=== PATIENT | female | born 1945 | race Caucasian/White ===

== ENCOUNTER 2020-12-10 11:39 | Inpatient (IN) ==
--- NOTE | 2020-12-10 12:07 | Emergency Department Note ---
History of Present Illness General Chief complaint: Arm Pain Stated complaint: FALLS, ARM FX Time Seen by Provider: 12/10/20 11:51 Source: patient Mode of arrival: EMS Limitations: language barrier History of Present Illness Provider complaint: Left arm pain 75-year-old female presents from a local senior living where she is being rehabbed after having a subarachnoid hemorrhage and status post craniectomy. The patient has been there for about 10 days at [facility]. They noticed some abnormality with her left arm. There was noted to be some swelling. Sent her here for evaluation. She has frequent falls. She has fallen at least 4 times in the last 24 hours according to EMS. Patient is unable to provide any information as she is nonverbal. The patient is full assist at the senior living. Home Medications Medication Instructions Recorded Confirmed Type acetaminophen [Tylenol] 325 mg PO Q4H PRN 12/10/20 12/10/20 History amantadine HCl 50 mg PO BID 12/10/20 12/10/20 History bethanechol chloride 10 mg PO TID 12/10/20 12/10/20 History donepezil 5 mg PO HS 12/10/20 12/10/20 History famotidine 20 mg PO BID 12/10/20 12/10/20 History ipratropium-albuterol [DuoNeb] 3 ml INHALATION Q6H PRN 12/10/20 12/10/20 History lactose-reduced food with fibr See Rx Instructions .ROUTE .COMPLEX 12/10/20 12/10/20 History [Jevity 1.5 Tu] levetiracetam [Keppra] 1,500 mg PO Q12H 12/10/20 12/10/20 History melatonin 3 mg PO HS PRN 12/10/20 12/10/20 History midodrine 10 mg PO TID 12/10/20 12/10/20 History mirtazapine 7.5 mg PO HS 12/10/20 12/10/20 History sennosides [senna] 8.6 mg PO HS 12/10/20 12/10/20 History tamsulosin [Flomax] 0.4 mg PO BID 12/10/20 12/10/20 History Allergies Allergy/AdvReac Type Severity Reaction Status Date / Time No Known Allergies Allergy Unverified 12/10/20 13:08 Past Med/Surg History Medical History (Updated 12/10/20 @ 14:09 by Xu Horn DO) Bladder outlet obstruction Encephalopathy Epilepsy Falls History of ARDS Left humeral fracture Obesity Recent urinary tract infection Subarachnoid bleed Surgical History (Updated 12/10/20 @ 13:35 by Shweta Sheppard PA-C) History of cranioplasty Status post insertion of percutaneous endoscopic gastrostomy (PEG) tube Social History Smoking Status: Unknown if ever smoked Review of Systems A total of 10 systems reviewed and were otherwise negative Physical Exam Vital Signs Vital Signs - 24 hr 12/10/20 11:40 Temperature 36.8 C Temperature Source Oral Pulse Rate 64 Pulse Rhythm Regular Respiratory Rate 22 Respiratory Effort / Characteristics Non-Labored Spontaneous Respiratory Depth Normal Respiratory Pattern Regular Blood Pressure 113/65 Blood Pressure Mean 81 Blood Pressure Position Lying Pulse Oximetry 97 Oxygen Delivery Method Room Air Sepsis Recent Fever Within 48 Hours No Sepsis New/Unexplained Change in Mental Status No Sepsis Action Taken by Nursing No Action Required CONSTITUTIONAL/VITAL SIGNS: Reviewed / noted above. GENERAL: Non-toxic in appearance. INTEGUMENTARY: Warm, dry, and [place]. HEAD: Normocephalic. Ecchymosis around the left eye. EYES: without scleral icterus or trauma. ENT/OROPHARYNX: clear and moist. LYMPHADENOPATHY/NECK: Is supple without lymphadenopathy or meningismus. RESPIRATORY: Lungs clear and equal. CARDIOVASCULAR: Regular rate and rhythm. GI/ABDOMEN: Soft and nontender. No organomegaly or pulsatile mass. No rebound or guarding. Normal bowel sounds. EXTREMITIES: Warm and well perfused. Swelling/edema to the left humeral region. Distally neurovascularly intact. NEUROLOGICAL: Intact without focal deficits. PSYCHIATRIC: normal affect. MUSCULOSKELETAL: Normally developed with good muscle tone. TRIAGE NURSING DOCUMENTATION REVIEWED. Medical Decision Making Differential Diagnosis Differential includes close head injury, intracranial bleed, facial trauma, cervical spine trauma, chest and thoracic trauma, abdominal and intra-abdominal trauma, spine neurologic trauma, extremity trauma. Medical Records Attestation: I reviewed the patient's medical records. Home Medications Current Medication List: was personally reviewed by me Laboratory Data Attestation: I reviewed the patient's lab results. Result diagrams: 12/10/20 12:52 12/10/20 12:52 Lab Results 12/10/20 12/10/20 12/10/20 Range/Units 12:52 12:52 13:25 WBC 5.05 (4.8-10.8) K/uL RBC 2.83 L (4.2-5.4) M/uL Hgb 8.9 L (12.0-16.0) g/dL Hct 28.1 L (37-47) % MCV 99.3 (80-100) fL MCH 31.4 (25-34) pg MCHC 31.7 L (32-36) g/dL RDW Std Deviation 59.8 H (36.4-46.3) fL RDW Coeff of Ben 16.3 H (11.5-14.5) % Plt Count 134 (130-400) K/uL MPV 12.1 H (7.4-10.4) fL Immature Gran % (Auto) 0.2 % Neut % (Auto) 73.1 % Lymph % (Auto) 15.8 % [place] % (Auto) 8.7 % Eos % (Auto) 2.0 % Baso % (Auto) 0.2 % Neut # (Auto) 3.69 (1.4-6.5) K/uL Lymph # (Auto) 0.80 L (1.2-3.4) K/uL [place] # (Auto) 0.44 (0.11-0.59) K/uL Eos # (Auto) 0.10 (0-0.5) K/uL Baso # (Auto) 0.01 (0-0.2) K/uL Immature Gran # (Auto) 0.01 (0.00-0.02) K/uL Sodium 144 (136-145) mmol/L Potassium 4.2 (3.5-5.1) mmol/L Chloride 106 (98-107) mmol/L Carbon Dioxide 34 H (21-32) mmol/L Anion Gap 5.0 (3-11) BUN 14 (7-18) mg/dl Creatinine 1.03 (0.6-1.2) mg/dl Est Cr Clr Drug Dosing 46.3 ml/min Est GFR ( Amer) 61.6 ml/min Est GFR (Non-Af Amer) 53.1 ml/min BUN/Creatinine Ratio 13.9 (10-20) Glucose 83 (70-99) mg/dl Calcium 9.8 (8.5-10.1) mg/dl Total Bilirubin 0.3 (0.2-1) mg/dl AST 15 (15-37) U/L ALT 28 (12-78) U/L Alkaline Phosphatase 144 H (45-117) U/L Total Protein 6.4 (6.4-8.2) gm/dl Albumin 2.6 L (3.4-5.0) gm/dl Globulin 3.8 (2.5-4.0) gm/dl Albumin/Globulin Ratio 0.7 L (0.9-2) COVID-19 Eval Order Covid19 at [facility] Imaging Data Radiologist's Impression: Humerus X-Ray 12/10/20 12:04 LEFT HUMERUS 2 VIEWS CLINICAL HISTORY: Fall with left arm injury. FINDINGS: AP and lateral views of the left humerus are obtained. No prior studies are available for comparison at the time of dictation. The skeletal s tructures are osteopenic. There is a displaced and angulated spiral fracture through the proximal to mid shaft of the left humerus. The distal fragment is displaced dorsally by approximately 5 cm, and there is at least 4.5 cm of overriding of the fragments. Overlying soft tissue edema is noted. The left shoulder and elbow joints are grossly maintained. Imaged left lung parenchyma appears clear. IMPRESSION: Displaced, angulated, and overriding spiral fracture through the proximal to mid shaft of the left humerus as above. Electronically signed by: Kilo Cotter M.D. 12/10/2020 1:06 PM MDM Narrative Patient presents for evaluation of left arm injury related to a possible fall. Details above. The patient's blood work reveals hemoglobin of 8.9. Chemistry panel was unremarkable. Humerus fracture as noted above. I spoke with Dr. Kerr about the patient. He recommends admission to medicine and they will evaluate in consultation. Impression & Plan Left humeral fracture Discharge Plan Visit Data Chief Complaint: Arm Pain Stated Complaint: FALLS, ARM FX ED Provider: Xu Horn Discharge Problem: Left humeral fracture Patient Disposition: Being Evaluated by Hospitalist Forms Stand Alone Forms: [facility], Virtual Emergency Department, Important Visit Information Prescriptions Prescriptions: No Action amantadine HCl 50 mg/5 mL Solution 50 mg PO BID RF: 0 sennosides [senna] 8.6 mg Tablet 8.6 mg PO HS RF: 0 acetaminophen [Tylenol] 325 mg Tablet 325 mg PO Q4H PRN (Reason: mild to severe pain) RF: 0 ipratropium-albuterol [DuoNeb] 0.5 mg-3 mg(2.5 mg base)/3 mL Solution For Nebulization 3 ml INHALATION Q6H PRN (Reason: Shortness Of Breath) RF: 0 donepezil 5 mg Tablet 5 mg PO HS RF: 0 bethanechol chloride 10 mg Tablet 10 mg PO TID RF: 0 midodrine 5 mg Tablet 10 mg PO TID RF: 0 melatonin 3 mg Tablet 3 mg PO HS PRN (Reason: Sleep) RF: 0 famotidine 20 mg Tablet 20 mg PO BID RF: 0 tamsulosin [Flomax] 0.4 mg Capsule 0.4 mg PO BID RF: 0 levetiracetam [Keppra] 100 mg/mL Solution 1,500 mg PO Q12H RF: 0 mirtazapine 7.5 mg Tablet 7.5 mg PO HS RF: 0 Jevity 1.5 Tu 0.06 gram-1.5 kcal/mL Liquid See Rx Instructions .ROUTE .COMPLEX RF: 0 Referrals Referrals: Kate Tapia [Primary Care Provider] -
[2020-12-10 13:00] LABS: Basophils # (auto) 0.01 K/uL (0-0.2); Basophils % (auto) 0.2 %; Hematocrit (blood only) 28.1 % (37-47); Hemoglobin 8.9 g/dL (12.0-16.0); Immature Granulocytes # (auto) 0.01 K/uL (0.00-0.02); Immature Granulocytes % (auto) 0.2 %; Lymphocytes % (auto) 15.8 %; Mean Corpuscular Hemoglobin 31.4 pg (25-34); Mean Corpuscular Hgb Conc 31.7 g/dL (32-36); Mean Corpuscular Volume 99.3 fL (80-100); Mean Platelet Volume 12.1 fL (7.4-10.4); Monocytes # (auto) 0.44 K/uL (0.11-0.59); Monocytes % (auto) 8.7 %; Neutrophils # (auto) 3.69 K/uL (1.4-6.5); Neutrophils % (auto) 73.1 %; Platelet Count 134 K/uL (130-400); RDW Coefficient of Variation 16.3 % (11.5-14.5); RDW Standard Deviation 59.8 fL (36.4-46.3); Red Blood Count 2.83 M/uL (4.2-5.4); White Blood Count 5.05 K/uL (4.8-10.8)
--- NOTE | 2020-12-10 13:07 | XRay Report ---
LEFT HUMERUS 2 VIEWS CLINICAL HISTORY: Fall with left arm injury. FINDINGS: AP and lateral views of the left humerus are obtained. No prior studies are available for c omparison at the time of dictation. The skeletal structures are osteopenic. There is a displaced and angulated spiral fracture through the proximal to mid shaft of the left humerus. The distal fragment is displaced dorsally by approximately 5 cm, and there is at least 4.5 cm of overriding of the fragme nts. Overlying soft tissue edema is noted. The left shoulder and elbow joints are grossly maintained. Imaged left lung parenchyma appears clear. IMPRESSION: Displaced, angulated, and overriding spiral fracture through the proximal to mid shaft of the left humerus as above. Electronically signed by: Kilo Cotter M.D. 12/10/2020 1:06 PM
[2020-12-10 13:18] LABS: Albumin Level 2.6 gm/dl (3.4-5.0); BUN Creatinine Ratio 13.9 (10-20); Calcium 9.8 mg/dl (8.5-10.1); Creatinine Clr Calc Pharmacy 46.3 ml/min; Est GFR (African American) 61.6 ml/min; Est GFR (Non-African American) 53.1 ml/min; Potassium 4.2 mmol/L (3.5-5.1)
--- NOTE | 2020-12-10 13:20 | History & Physical Report ---
Date of Service December 10, 2020 Assessment & Plan (1) Left humeral fracture: - Following multiple falls over the last 24 hours at rehab facility. - XR of left humerus showed a displaced, angulated and overriding spiral fracture through the proximal to mid shaft of the left humerus. - Orthopedics, Dr. Kerr consulted, for evaluation. - NPO except meds pending possible surgical intervention. - Tylenol prn acute pain; will hold narcotics due to confusion. - EKG and CXR for pre-operative work up; cannot assess for surgical cardiac risk at this point. (2) Encephalopathy: - Unclear etiology, appears to have acutely worsened over the last 24-48 hours. - Admitted in September/2020 at outside facility for subarachnoid hemorrhage - s/p cranioplasty, aneurysm clip and shunt placement. - Also developed sepsis (bacteremia 2/2 midline) and ARDs during this admission (leading to trach placement). - Will obtain CXR (rule out PNA), U/a + UC (recently treated for UTI), blood cultures x [address] brain to rule out bleeding. - Continue Keppra as prescribed for recent diagnosis of seizures. - Speech therapy consult for further evaluation. (3) History of cranioplasty: - On 09/20/20 at outside facility, related to subarachnoid hemorrhage. (4) Subarachnoid bleed: - Diagnosed in September/2020; required transfer to [facility] for treatment. - Obtaining updated CT brain to rule out acute bleed in setting of worsening encephalopathy. (5) Recent urinary tract infection: - U/a + UC; treat pending results. (6) Falls: - She has had multiple falls over the last 24 hours at [facility]; will need to evaluate for acute event, including neurological event vs. infection. - PT/OT/Speech consult. (7) Bladder outlet obstruction: - Continue home medications. - May require guan catheter placement. (8) History of ARDS: - During previous hospital admission. (9) Status post insertion of percutaneous endoscopic gastrostomy (PEG) tube: - During previous hospitalization; per [facility] notes, she receives Jevity 1.5 1 can via tube if she eats less than 50% of her meals. - On pureed diet; will consult nutrition & speech therapy. - NPO for surgical intervention; IV fluids at 80 cc/hr. (10) Epilepsy: - Following SAH in September, did not have h/o epilepsy prior to event; on Keppra BID, will continue medication. (11) Obesity: - Due to sedentary lifestyle. (12) DVT prophylaxis: - SCDs; holding Lovenox due to recent SAH + possible surgery. FEN/GI: NPO except meds, tube feedings via PEG tube. IV fluids at 80 cc/hr. Dispo: Med/surg; ortho consult pending. Case management for discharge planning. History of Present Illness Chief Complaint: Left humeral fracture Primary Care Provider: Kate Tapia Ms. 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 She presented from [facility] rehab following 4 falls over the last 24 hours (per ER note). XR of left humerus did show a displaced, angulated and overriding spiral fracture through the proximal to mid shaft of the left humerus. The patient initially presented to an outside facility on 09/15 with H/A, N/V and altered mental status. Imaging confirmed diagnosis of a subarachnoid hemorrhage; she was transferred to [facility] and underwent cranioplasty on 09/20/20, aneurysm clip and shunt placement. Developed respiratory failure, required trach placement along with PEG tube placement. Diagnosed with sepsis, bacteremia (treated with IV abx) related to midline placement. Tracheostomy has since been removed but does have PEG tube (receiving 1 can of Jevity if she eats <50% of her meals). She is requiring a pureed diet as well. She was discharged to [facility] on 11/30/20. Her daughter was present at bedside; reports that the patient was very healthy, was able to participate in activities with her family and lived alone prior to event in September/2020. She was improving, somewhat verbal following discharge to [facility]; her mental status significantly declined over the last 48-72 hours, leading to her family being notified of the change. Allergies Allergy/AdvReac Type Severity Reaction Status Date / Time No Known Allergies Allergy Unverified 12/10/20 13:08 Home Medications Medication Instructions Recorded Confirmed Type acetaminophen [Tylenol] 325 mg PO Q4H PRN 12/10/20 12/10/20 History amantadine HCl 50 mg PO BID 12/10/20 12/10/20 History bethanechol chloride 10 mg PO TID 12/10/20 12/10/20 History donepezil 5 mg PO HS 12/10/20 12/10/20 History famotidine 20 mg PO BID 12/10/20 12/10/20 History ipratropium-albuterol [DuoNeb] 3 ml INHALATION Q6H PRN 12/10/20 12/10/20 History lactose-reduced food with fibr See Rx Instructions .ROUTE .COMPLEX 12/10/20 12/10/20 History [Jevity 1.5 Tu] levetiracetam [Keppra] 1,500 mg PO Q12H 12/10/20 12/10/20 History melatonin 3 mg PO HS PRN 12/10/20 12/10/20 History midodrine 10 mg PO TID 12/10/20 12/10/20 History mirtazapine 7.5 mg PO HS 12/10/20 12/10/20 History sennosides [senna] 8.6 mg PO HS 12/10/20 12/10/20 History tamsulosin [Flomax] 0.4 mg PO BID 12/10/20 12/10/20 History Past Med/Surg History Medical History (Updated 12/10/20 @ 14:09 by Xu Horn DO) Bladder outlet obstruction Encephalopathy Epilepsy Falls History of ARDS Left humeral fracture Obesity Recent urinary tract infection Subarachnoid bleed Surgical History (Updated 12/10/20 @ 13:35 by Shweta Sheppard PA-C) History of cranioplasty Status post insertion of percutaneous endoscopic gastrostomy (PEG) tube Social History Smoking Status: Unknown if ever smoked Review of Systems Review of Systems: Unobtainable due to cognitive status Physical Exam Physical Exam: General: Resting comfortably in no apparent distress; A&OX3 HEENT: NC/AT; PERRLA with EOMI; May conjunctiva, MMM. No erythema of posterior pharynx Neck: Supple and nontender Cardiac: RRR w/o murmurs, gallops or rubs; S1 and S2 Lungs: CTA bilaterally; No rhonchi, wheezing, or rales Abdomen: Bowel normoactive X 4; Nontender to palpation; No organomegaly Rectal: Deferred : Deferred Extremities: Warm. No cyanosis or edema present Neuro: Could not complete exam due to altered mental status. Skin: Ecchymosis noted around left orbital area. Results & Data Results & Data ([facility]) Vital Signs (Past 12 Hours) Vital Signs Temp Pulse Resp BP Pulse Ox 12/10/20 11:40 36.8 C 64 22 113/65 97 Laboratory Results 12/10/20 12/10/20 Range/Units 12:52 12:52 WBC 5.05 (4.8-10.8) K/uL RBC 2.83 L (4.2-5.4) M/uL Hgb 8.9 L (12.0-16.0) g/dL Hct 28.1 L (37-47) % MCV 99.3 (80-100) fL MCH 31.4 (25-34) pg MCHC 31.7 L (32-36) g/dL RDW Std Deviation 59.8 H (36.4-46.3) fL RDW Coeff of Ben 16.3 H (11.5-14.5) % Plt Count 134 (130-400) K/uL MPV 12.1 H (7.4-10.4) fL Immature Gran % (Auto) 0.2 % Neut % (Auto) 73.1 % Lymph % (Auto) 15.8 % [place] % (Auto) 8.7 % Eos % (Auto) 2.0 % Baso % (Auto) 0.2 % Neut # (Auto) 3.69 (1.4-6.5) K/uL Lymph # (Auto) 0.80 L (1.2-3.4) K/uL [place] # (Auto) 0.44 (0.11-0.59) K/uL Eos # (Auto) 0.10 (0-0.5) K/uL Baso # (Auto) 0.01 (0-0.2) K/uL Immature Gran # (Auto) 0.01 (0.00-0.02) K/uL Sodium 144 (136-145) mmol/L Potassium 4.2 (3.5-5.1) mmol/L Chloride 106 (98-107) mmol/L Carbon Dioxide 34 H (21-32) mmol/L Anion Gap 5.0 (3-11) BUN 14 (7-18) mg/dl Creatinine 1.03 (0.6-1.2) mg/dl Est Cr Clr Drug Dosing 46.3 ml/min Est GFR ( Amer) 61.6 ml/min Est GFR (Non-Af Amer) 53.1 ml/min BUN/Creatinine Ratio 13.9 (10-20) Glucose 83 (70-99) mg/dl Calcium 9.8 (8.5-10.1) mg/dl Total Bilirubin 0.3 (0.2-1) mg/dl AST 15 (15-37) U/L ALT 28 (12-78) U/L Alkaline Phosphatase 144 H (45-117) U/L Total Protein 6.4 (6.4-8.2) gm/dl Albumin 2.6 L (3.4-5.0) gm/dl Globulin 3.8 (2.5-4.0) gm/dl Albumin/Globulin Ratio 0.7 L (0.9-2) Diagnostic Findings LEFT HUMERUS 2 VIEWS CLINICAL HISTORY: Fall with left arm injury. FINDINGS: AP and lateral views of the left humerus are obtained. No prior studies are available for comparison at the time of dictation. The skeletal structures are osteopenic. There is a displaced and angulated spiral fracture through the proximal to mid shaft of the left humerus. The distal fragment is displaced dorsally by approximately 5 cm, and there is at least 4.5 cm of overriding of the fragments. Overlying soft tissue edema is noted. The left shoulder and elbow joints are grossly maintained. Imaged left lung parenchyma a ppears clear. IMPRESSION: Displaced, angulated, and overriding spiral fracture through the proximal to mid shaft of the left humerus as above Code Status & VTE Plan Code Status FULL CODE per [facility] documentation VTE Prophylaxis Plan VTE Prophylaxis will be ordered: Yes Supervising Physician Co-Signing Physician Notes Patient was seen and examined independently I discussed the case with Shweta Bukc PAC I reviewed pertinent past medical social family history and also the plan of care and agree with the plan of care. Pt with recent decline in mental status and multiple falls resulting in a displaced left humeral fracture. Pt is limited verbal communication since recent subdural hematoma with craniotomy and aneurysmal clipping. She has been on Keppra since. Will be worked for metabolic encephalopathy will be supported, keep NPO, therapy eval, CT check for Urine infection poa Ortho consult for eval of repair no immediate concern for delay of surgical correction Any exceptions will be noted below PG Care Time/CCT Total # of Minutes Spent Total Time Spent with Patient: Total time spent is greater than 50% in coordination of care (as documented) at patient's floor/unit and/or counseling patient: Coding Level of Care Code 73312 Initial Inpt Care Lvl 3 Diagnoses Left humeral fracture S42.302A Encephalopathy G93.40 History of cranioplasty Z98.890 Subarachnoid bleed I60.9 Recent urinary tract infection Z87.440 Falls W19.XXXA Bladder outlet obstruction N32.0 History of ARDS Z87.09 Status post insertion of percutaneous endoscopic gastrostomy (PEG) tube Z93.1 Epilepsy G40.909 Obesity E66.9 DVT prophylaxis Z29.9
[2020-12-10 13:21] LABS: Albumin Globulin Ratio 0.7 (0.9-2); Bilirubin,Total 0.3 mg/dl (0.2-1); Globulin 3.8 gm/dl (2.5-4.0); Total Protein 6.4 gm/dl (6.4-8.2)
[2020-12-10] MEDS ORDERED: MoRPHine SULFATE 4 MG/ML 1 ML CARP\\VIAL IV PRN (16:06)
[2020-12-10] MEDS ORDERED: ONDANSETRON INJ 2 MG/ML 2 ML VIAL IV PRN (16:06)
[2020-12-10] MEDS ORDERED: ALBUT/IPRATROP 3MG/0.5MG NEB 3 ML VIAL INH PRN (16:06)
[2020-12-10] MEDS ORDERED: ACETAMINOPHEN 325 MG TAB PEG PRN (16:06)
[2020-12-10] MEDS ORDERED: MoRPHine SULFATE 2 MG/ML CARP IV PRN (16:06)
[2020-12-10] MEDS ORDERED: ACETAMINOPHEN 325 MG TAB PO PRN (16:06)
--- NOTE | 2020-12-10 16:58 | XRay Report ---
SINGLE VIEW CHEST CLINICAL HISTORY: Change in mental status. Encephalopathy. Preoperative examination. FINDINGS: An AP, portable, upright chest radiograph is compared obtained. No prior studies are availa ble for comparison at the time of dictation. A ventriculostomy catheter traverses the right chest wal l. The heart is enlarged noting atherosclerotic calcification of the thoracic aorta. The pulmonary va sculature is noncongested. There is bibasilar atelectasis, left greater than right. No airspace conso lidation or large pleural effusion is identified. No pneumothorax is seen. The skeletal structures ar e osteopenic. The bony thorax is grossly intact. Degenerative change and scoliosis are noted in the t horacic spine. IMPRESSION: Cardiomegaly with no acute cardiopulmonary abnormality. ACT 112: Negative or not required by law. Electronically signed by: Kilo Cotter M.D. 12/10/2020 4:56 PM
[2020-12-10] MEDS ORDERED: OPTIRAY 320 100ml IV ONE (17:16)
[2020-12-10] MEDS: SODIUM CHLORIDE 0.9% 1000ML 1,000 ML IV SCH (17:36)
--- NOTE | 2020-12-10 17:47 | CT Scan Report ---
CT SCAN OF THE BRAIN COMBO CLINICAL HISTORY: Acute encephalopathy. COMPARISON STUDY: No priors. TECHNIQUE: Axial CT scan of the brain is performed from the vertex to the skull base before and follo wing the IV administration of 93 cc of Optiray 320. A dose lowering technique was utilized adhering t o the principles of ALARA. IV contrast was administered without complication. Note that interpretatio n is significantly suboptimal without comparison studies. CT DOSE: 2923.50 mGy.cm FINDINGS: Brain parenchyma: There is right temporal encephalomalacia consistent with a remote insult with assoc iated ex vacuo dilatation of the temporal horn of the right lateral ventricle. A metallic device/surg ical change is present in the right anterior temporal fossa. There is age-related involutional change noting mild to moderate subcortical and periventricular microangiopathic disease. A ventriculostomy catheter is in place from a left frontal approach. The tip of the catheter terminates in the frontal horn of the left lateral ventricle. There is no hemorrhage, mass effect, or evidence of acute territo rial ischemia by CT criteria. There is no evidence of enhancing lesion on the postcontrast images. Gr ay-white matter differentiation is preserved. No extra-axial fluid collection is seen. Calcification along the right frontal convexity likely represents postoperative change. Ventricles, sulci, cisterns: Prominent secondary to involutional change. See above for discussion of a ventricular catheter. Intracranial vasculature: There is atherosclerotic calcification of the cavernous carotid arteries ca vernous carotid arteries. The intracranial vessels and dural sinuses at the skull base appear patent. Calvarium: There is postoperative change from right-sided craniotomy/craniectomy. A left frontal victor hugo hole is noted. Sinuses and mastoids: Trace mucosal thickening is noted in the left sphenoid sinus. The remaining vis ualized paranasal sinuses are clear. There are bilateral mastoid effusions. Cerumen is present within the external auditory canals. Orbits: The bony orbits are grossly intact. Soft tissues: There is left frontal scalp contusion. Skin clips are noted in the left occipital scalp . IMPRESSION: 1. There is no hemorrhage, enhancing mass, or evidence of acute territorial ischemia by CT criteria. 2. Chronic and postoperative changes as above with a ventriculostomy catheter in place. Correlation w ith the patient's neurological/neurosurgical history be required. ACT 112: Negative or not required by law. Electronically signed by: Kilo Cotter M.D. 12/10/2020 5:45 PM
[2020-12-10] MEDS: levETIRAcetam ORAL SOLN 100MG/ML PEG SCH (18:18)
[2020-12-10] MEDS: MIDODRINE HCL 10 MG TAB PO SCH (18:19)
[2020-12-10 18:57] LABS: Appearance Urine Turbid (Clear); Bacteria Urine Automated 2+ (Negative); Bilirubin Urine Negative (Negative); Blood Urine 1+ (Negative); Color Urine Yellow; Glucose Urine UA Negative (Negative); Ketones Urine Negative (Negative); Leukocyte Esterase Urine 3+ (Negative); Nitrite Urine Positive (Negative); Protein Urine 1+ (Negative); RBC Urine Automated 0-4 /hpf (0-4); Specific Gravity Urine 1.019 (1.000-1.030); Urobilinogen Urine Negative (Negative); WBC Urine Automated >30 /hpf (0-5)
[2020-12-10] MEDS: DONEPEZIL HCL 5 MG TAB PO SCH (20:59)
[2020-12-10] MEDS: FAMOTIDINE 20 MG TAB JT SCH (21:00)
[2020-12-10] MEDS: MIRTAZAPINE TAB 15 MG TAB GT SCH (21:00)
[2020-12-10] MEDS: SENNOSIDES 8.8 MG/5 ML UDC PO SCH (21:01)
[2020-12-10] MEDS: TAMSULOSIN HCL 0.4 MG CAP PEG SCH (21:19)
[2020-12-11] MEDS: oxyCODONE HCL IR 5 MG TAB (IMMEDIATE RELEASE) PEG PRN ×4 (04:05→23:13)
[2020-12-11] MEDS: SODIUM CHLORIDE 0.9% 1000ML 1,000 ML IV SCH ×2 (04:30→20:44)
[2020-12-11 05:58] LABS: Basophils # (auto) 0.01 K/uL (0-0.2); Basophils % (auto) 0.2 %; Eosinophils # (auto) 0.17 K/uL (0-0.5); Eosinophils % (auto) 3.2 %; Hematocrit (blood only) 25.4 % (37-47); Hemoglobin 8.2 g/dL (12.0-16.0); Immature Granulocytes # (auto) 0.02 K/uL (0.00-0.02); Immature Granulocytes % (auto) 0.4 %; Lymphocytes # (auto) 0.96 K/uL (1.2-3.4); Lymphocytes % (auto) 17.8 %; Mean Corpuscular Hemoglobin 30.9 pg (25-34); Mean Corpuscular Hgb Conc 32.3 g/dL (32-36); Mean Corpuscular Volume 95.8 fL (80-100); Mean Platelet Volume 11.5 fL (7.4-10.4); Monocytes # (auto) 0.55 K/uL (0.11-0.59); Monocytes % (auto) 10.2 %; Neutrophils # (auto) 3.67 K/uL (1.4-6.5); Neutrophils % (auto) 68.2 %; Platelet Count 147 K/uL (130-400); RDW Coefficient of Variation 16.2 % (11.5-14.5); RDW Standard Deviation 56.9 fL (36.4-46.3); Red Blood Count 2.65 M/uL (4.2-5.4); White Blood Count 5.38 K/uL (4.8-10.8)
[2020-12-11] MEDS: MIDODRINE HCL 10 MG TAB PO SCH ×3 (06:10→16:28)
[2020-12-11 06:37] LABS: Albumin Level 2.4 gm/dl (3.4-5.0); BUN Creatinine Ratio 13.1 (10-20); Creatinine Clr Calc Pharmacy 50.2 ml/min; Est GFR (African American) 67.9 ml/min; Est GFR (Non-African American) 58.6 ml/min; Potassium 4.2 mmol/L (3.5-5.1)
[2020-12-11 06:42] LABS: Albumin Globulin Ratio 0.7 (0.9-2); Bilirubin,Total 0.4 mg/dl (0.2-1); Ferritin 130.2 ng/ml (8-388); Globulin 3.4 gm/dl (2.5-4.0); Total Protein 5.8 gm/dl (6.4-8.2)
[2020-12-11] MEDS: TAMSULOSIN HCL 0.4 MG CAP PEG SCH ×3 (08:43→20:49)
[2020-12-11] MEDS: FAMOTIDINE 20 MG TAB JT SCH ×2 (08:44→20:48)
[2020-12-11] MEDS: levETIRAcetam ORAL SOLN 100MG/ML PEG SCH ×2 (08:44→20:48)
[2020-12-11] MEDS: ACETAMINOPHEN 325 MG TAB PEG PRN ×3 (12:42→23:13)
--- NOTE | 2020-12-11 12:47 | Orthopedic Consultation ---
Date of Consultation December 11, 2020 Assessment & Plan (1) Left humeral fracture: Left proximal to mid shaft, displaced, humerus fracture. I have spoken with the daughter Patricia. We discussed that treatment forms for this type of fracture would be possibly coaptation splint/Ford bracing, open reduction/internal fixation with plate and screw device of the fracture versus IM nailing of the fracture. We discussed that no matter what type of fixation would be attempted, she would be nonweightbearing on her left upper extremity for many weeks. She would likely need to be bed to chair transfers for now before returning to any physical therapy for ambulation. She states that she has talked to some of her siblings. They would be in agreement for surgery if needed. At this point in time we will make sure the patient will be medically stable for any type of procedure. U phyisicians to review films and give recommendations. Continue elevation of the left upper extremity with pillows and continue sling/splint for comfort. Continue current pain management. Most likely, surgery will not happen today however we will maintain the n.p.o. status until I have heard further from our physicians. 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 History is taken from the chart. I was able to speak to her one daughter. After her treatment for her bleed in [place], she was transferred to [facility] rehab and has been there only approximately 1 week. Her daughter states that by the time she was leaving the hospital in [place], she was able to take about 10 steps with a walker. She had some noted weakness on the left side of the body with her arm and leg but was starting to slowly progress where she was getting movement back. She is unsure of the events at [facility]. Apparently she had multiple falls within the last 24 hours prior to being admitted. At 1 point she had fallen and appeared to be in discomfort. She was having increased swelling of her left upper extremity and x-rays were taken at [facility]. Was found that she had a humerus fracture and was transferred to [facility]. She was seen by the staff, further x-rays were taken and she was thusly admitted by the hospitalist service. We have been asked to take care of her left humerus fracture. Allergies Allergy/AdvReac Type Severity Reaction Status Date / Time No Known Allergies Allergy Unverified 12/10/20 13:08 Home Medications Medication Instructions Recorded Confirmed Type acetaminophen [Tylenol] 325 mg PO Q4H PRN 12/10/20 12/10/20 History amantadine HCl 50 mg PO BID 12/10/20 12/10/20 History bethanechol chloride 10 mg PO TID 12/10/20 12/10/20 History donepezil 5 mg PO HS 12/10/20 12/10/20 History famotidine 20 mg PO BID 12/10/20 12/10/20 History ipratropium-albuterol [DuoNeb] 3 ml INHALATION Q6H PRN 12/10/20 12/10/20 History lactose-reduced food with fibr See Rx Instructions .ROUTE .COMPLEX 12/10/20 12/10/20 History [Jevity 1.5 Tu] levetiracetam [Keppra] 1,500 mg PO Q12H 12/10/20 12/10/20 History melatonin 3 mg PO HS PRN 12/10/20 12/10/20 History midodrine 10 mg PO TID 12/10/20 12/10/20 History mirtazapine 7.5 mg PO HS 12/10/20 12/10/20 History sennosides [senna] 8.6 mg PO HS 12/10/20 12/10/20 History tamsulosin [Flomax] 0.4 mg PO BID 12/10/20 12/10/20 History Patient History Medical History Bladder outlet obstruction Encephalopathy Epilepsy Falls History of ARDS Left humeral fracture Obesity Recent urinary tract infection Subarachnoid bleed Surgical History History of cranioplasty Status post insertion of percutaneous endoscopic gastrostomy (PEG) tube Social History Smoking Status: Unknown if ever smoked Preferred Language: Bahraini Communication Ability: Impaired Beliefs That Will Affect Care: None Current Living Situation: [facility] Current Living Situation Comment: [facility] Assistive Devices: Walker Review of Systems Review of Systems: Unobtainable due to cognitive status Physical Exam Physical Exam: Currently, the patient is lying in bed. Sling is in place on the left upper extremity with a noted posterior splint on the left upper extremity. She is moving her right arm around a little bit but is nonverbal and does not answer questions. On examining her left upper extremity, she has noted swelling of the left upper arm below the shoulder. Any attempts to palpate the area causes her to be mildly agitated. Her splint goes down to her wrist. I am able to palpate her hand and fingers without any apparent discomfort to the patient. Cap refills less than 2 seconds. She does not actively move her left hand and fingers when taking her through passive range of motion. Results & Data ([facility]) Vital Signs (Past 12 Hours) Vital Signs Temp Pulse Resp BP Pulse Ox 12/11/20 08:43 96 12/11/20 08:38 36.7 C 88 18 115/62 89 L 12/11/20 04:25 36.6 C Diagnostic Findings Patient: Carol BUSTOS Date: 12/10/20#: [id number]: [address] [facility] ID:[id number]: [facility] [birth year][facility]: [facility] Zip: [place], [place] [address]Tzy: 75Location: EDSex: FRoom/Bed:Att Phy:Diagnosis: FALLS, ARM FXPri Phy: Kate Tapia M.D.Service Date: 12/10/20[facility] Phy:Interpreting Phy: Kilo Cotter MDAdmit Phy: Ordering Phy: Xu Horn D.O. cc: ~ LEFT HUMERUS 2 VIEWS CLINICAL HISTORY: Fall with left arm injury. FINDINGS: AP and lateral views of the left humerus are obtained. No prior studies are available for comparison at the time of dictation. The skeletal structures are osteopenic. There is a displaced and angulated spiral fracture through the proximal to mid shaft of the left humerus. The distal fragment is displaced dorsally by approximately 5 cm, and there is at least 4.5 cm of overriding of the fragments. Overlying soft tissue edema is noted. The left shoulder and elbow joints are grossly maintained. Imaged left lung parenchyma appears clear. IMPRESSION: Displaced, angulated, and overriding spiral fracture through the proximal to mid shaft of the left humerus as above. (1) Left humeral fracture Encounter type: initial encounter Fracture morphology: unspecified fracture morphology Fracture type: closed Humerus Location: shaft Qualified Code(s): S42.302A - Unspecified fracture of shaft of humerus, left arm, initial encounter for closed fracture
[2020-12-11] MEDS: cefTRIAXone SODIUM 2,000 MG in DEXTROSE 5% 50 ML IV SCH (15:07)
--- NOTE | 2020-12-11 16:58 | Hospitalist Progress Note ---
Date of Service December 11, 2020 Assessment & Plan (1) Left humeral fracture: mechanical fall, displaced with large degree of separation, orthopedic surgery is considering surgical repair, given recent subarachnoid bleed and craniotomy will have anesthesia consult to determine if able to perform surgery with limb block as she is only 2 months out from [facility]. 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 Ct of head 12/10/20 IMPRESSION: 1. There is no hemorrhage, enhancing mass, or evidence of acute territorial ischemia by CT criteria. 2. Chronic and postoperative changes as above with a ventriculostomy catheter in place. Correlation with the patient's neurological/neurosurgical history be required. (5) Recent urinary tract infection: once again has gram negative in urine likely poa and responsible for metabolic encephalopathy (6) Falls: (7) Bladder outlet obstruction: continues on flomax but with poor output will place guan (8) History of ARDS: (9) Status post insertion of percutaneous endoscopic gastrostomy (PEG) tube: During previous hospitalization; per [facility] notes, she receives Jevity 1.5 1 can via tube if she eats less than 50% of her meals. - On pureed diet; will consult nutrition & speech therapy. - NPO for surgical intervention; IV fluids at 80 cc/hr. (10) Epilepsy: after subarachnoid hemorrhage, will continue keppra (11) Obesity: (12) DVT prophylaxis: scd Admission and Anticipated Discharge Date Admission Date: December 10, 2020 Results & Data Results & Data ([facility]) Vital Signs (Past 12 Hours) Vital Signs Temp Pulse Resp BP Pulse Ox 12/11/20 15:35 98.1 F 88 16 101/61 97 12/11/20 08:43 96 12/11/20 08:38 98.1 F 88 18 115/62 89 L PG Care Time/CCT Total # of Minutes Spent Total Time Spent with Patient: Total time spent is greater than 50% in coordination of care (as documented) at patient's floor/unit and/or counseling patient: Coding Level of Care Code 77988 Subseq Hosp Care Lvl 3 Diagnoses Left humeral fracture S42.302A Encounter type: initial encounter Fracture morphology: unspecified fracture morphology Fracture type: closed Humerus Location: shaft Encephalopathy G93.40 History of cranioplasty Z98.890 Subarachnoid bleed I60.9 Recent urinary tract infection Z87.440 Falls W19.XXXA Bladder outlet obstruction N32.0 History of ARDS Z87.09 Status post insertion of percutaneous endoscopic gastrostomy (PEG) tube Z93.1 Epilepsy G40.909 Obesity E66.9 DVT prophylaxis Z29.9 (1) Left humeral fracture Encounter type: initial encounter Fracture morphology: unspecified fracture morphology Fracture type: closed Humerus Location: shaft Qualified Code(s): S42.302A - Unspecified fracture of shaft of humerus, left arm, initial encounter for closed fracture
[2020-12-11] MEDS: SENNOSIDES 8.8 MG/5 ML UDC PO SCH (20:48)
[2020-12-11] MEDS: DONEPEZIL HCL 5 MG TAB PO SCH (20:48)
[2020-12-11] MEDS: MIRTAZAPINE TAB 15 MG TAB GT SCH (20:49)
[2020-12-12] MEDS: MIDODRINE HCL 10 MG TAB PO SCH ×3 (05:20→16:59)
[2020-12-12 06:40] LABS: Basophils # (auto) 0.02 K/uL (0-0.2); Basophils % (auto) 0.2 %; Eosinophils # (auto) 0.08 K/uL (0-0.5); Eosinophils % (auto) 0.7 %; Hematocrit (blood only) 25.5 % (37-47); Hemoglobin 8.1 g/dL (12.0-16.0); Immature Granulocytes # (auto) 0.03 K/uL (0.00-0.02); Immature Granulocytes % (auto) 0.3 %; Lymphocytes % (auto) 12.7 %; Mean Corpuscular Hemoglobin 31.6 pg (25-34); Mean Corpuscular Hgb Conc 31.8 g/dL (32-36); Mean Corpuscular Volume 99.6 fL (80-100); Mean Platelet Volume 11.4 fL (7.4-10.4); Monocytes # (auto) 1.42 K/uL (0.11-0.59); Monocytes % (auto) 12.9 %; Neutrophils # (auto) 8.04 K/uL (1.4-6.5); Neutrophils % (auto) 73.2 %; Platelet Count 195 K/uL (130-400); RDW Coefficient of Variation 15.7 % (11.5-14.5); RDW Standard Deviation 56.7 fL (36.4-46.3); Red Blood Count 2.56 M/uL (4.2-5.4); White Blood Count 10.99 K/uL (4.8-10.8)
[2020-12-12 07:11] LABS: Albumin Level 2.2 gm/dl (3.4-5.0); Calcium 8.6 mg/dl (8.5-10.1); Creatinine Clr Calc Pharmacy 40.4 ml/min; Est GFR (African American) 52.2 ml/min; Est GFR (Non-African American) 45.1 ml/min; Potassium 4.1 mmol/L (3.5-5.1)
[2020-12-12 07:14] LABS: Albumin Globulin Ratio 0.6 (0.9-2); Bilirubin,Total 0.6 mg/dl (0.2-1); Globulin 3.4 gm/dl (2.5-4.0); Total Protein 5.6 gm/dl (6.4-8.2)
[2020-12-12] MEDS: oxyCODONE HCL IR 5 MG TAB (IMMEDIATE RELEASE) PEG PRN ×2 (07:51→16:59)
[2020-12-12] MEDS: ACETAMINOPHEN 325 MG TAB PEG PRN ×2 (07:51→16:59)
[2020-12-12] MEDS: TAMSULOSIN HCL 0.4 MG CAP PEG SCH ×2 (07:52→21:53)
[2020-12-12] MEDS: FAMOTIDINE 20 MG TAB JT SCH ×2 (07:52→21:53)
[2020-12-12] MEDS: levETIRAcetam ORAL SOLN 100MG/ML PEG SCH ×2 (07:52→21:54)
[2020-12-12] MEDS: SODIUM CHLORIDE 0.9% 1000ML 1,000 ML IV SCH (08:50)
--- NOTE | 2020-12-12 10:08 | Orthopedic Progress Note ---
Date of Service December 12, 2020 Assessment & Plan (1) Left humeral fracture: Xrays reviewed by Dr. Sánchez. If patient medically stable, he would plan for ORIF of the humerus fx tomorrow. Unsure if pt was moving her left hand well prior to fall vs possible nerve injury. Anesthesia to review case for tomorrow. Will discuss with family about possible ORIF tomorrow. Admission and Anticipated Discharge Date Admission Date: December 10, 2020 Subjective Pt resting comfortably. Arouses to verbal stimuli but goes back to sleep easily. Does not follow commands. Physical Exam Physical Exam: Splint in place. LUE elevated on pillows. Hand/fingers pink and warm. Capillary refill < 2 seconds. Does not follow commands. Not moving her left hand or fingers. Results & Data ([facility]) Vital Signs (Past 12 Hours) Vital Signs Temp Pulse Resp BP Pulse Ox 12/12/20 08:53 38.0 C H 12/12/20 07:12 37.7 C H 89 16 118/75 97 12/12/20 00:08 37.5 C 12/11/20 22:40 38.6 C H 97 H 129/69 96 (1) Left humeral fracture Encounter type: initial encounter Fracture morphology: unspecified fracture morphology Fracture type: closed Humerus Location: shaft Qualified Code(s): S42.302A - Unspecified fracture of shaft of humerus, left arm, initial encounter for closed fracture
--- NOTE | 2020-12-12 11:08 | Electrocardiogram Report ---
Test Reason : Blood Pressure : / mmHG Vent. Rate : 065 BPM Atrial Rate : 065 BPM P-R Int : 194 ms QRS Dur : 084 ms QT Int : 444 ms P-R-T Axes : 070 017 056 degrees QTc Int : 461 ms Normal sinus rhythm Normal ECG No previous ECGs available Confirmed by Andrew Cohn ([id number]) on 12/12/2020 11:08:26 AM Referred By: [facility] Confirmed By:Andrew Cohn
[2020-12-12] MEDS: cefTRIAXone SODIUM 2,000 MG in DEXTROSE 5% 50 ML IV SCH (14:54)
--- NOTE | 2020-12-12 19:00 | Hospitalist Progress Note ---
Date of Service December 12, 2020 Assessment & Plan (1) Left humeral fracture: mechanical fall, displaced with large degree of separation, orthopedic surgery is considering surgical repair, given recent subarachnoid bleed and craniotomy will have anesthesia consult to determine if able to perform surgery with limb block as she is only 2 months out from [facility]. family is still considering if to proceed to surgery or not (2) Encephalopathy: metabolic encephalopathy poa, has ecoli uti, started on ceftriaxone, family corroborates that has had a decline in last few days that likely lead to higher fall risk now has fever despite antibiotics, will check cxr given worsening swallowing issues (3) History of cranioplasty: 09/20/20 at [facility] (4) Subarachnoid bleed: did have aneurysmal clipping. Ct of head 12/10/20 IMPRESSION: 1. There is no hemorrhage, enhancing mass, or evidence of acute territorial ischemia by CT criteria. 2. Chronic and postoperative changes as above with a ventriculostomy catheter in place. Correlation with the patient's neurological/neurosurgical history be required. (5) Recent urinary tract infection: once again has ecoli in urine likely poa and responsible for metabolic encephalopathy (6) Falls: (7) Bladder outlet obstruction: continues on flomax but with poor output will place guan (8) History of ARDS: (9) Status post insertion of percutaneous endoscopic gastrostomy (PEG) tube: During previous hospitalization; per longterm notes, she receives Jevity 1.5 1 can via tube if she eats less than 50% of her meals. - On pureed diet; will consult nutrition & speech therapy. - NPO for surgical intervention; IV fluids at 80 cc/hr. (10) Epilepsy: after subarachnoid hemorrhage, will continue keppra (11) Obesity: (12) DVT prophylaxis: scd Admission and Anticipated Discharge Date Admission Date: December 10, 2020 Subjective pt is slightly more awake, but is having fever despite starting antibiotics for e coli (pcn resistent) son at bedside and consented for blood if needed anemia is acute blood loss anemia from fracture Review of Systems Review of Systems: moderate distress and fatigue no headache, no visual changes swallowing issue is now npo no chest pain, pressure or palpitations no shortness of breath, cough or wheezes no abdominal pain, nausea or vomiting, diarrhea or constipation no dysuria, hematuria or frequency left upper arm pain and swelling no back pain, CVA tenderness or radicular pain no bruising, bleeding or rashes no focal signs of weakness or numbness or altered sensation no complaints of anxiety or depression.. Physical Exam Physical Exam: The patient appeared well nourished and normally developed. Vital signs as documented. Head exam is normocephalic atraumatic Neck is without JVD, thyromegaly, or carotid bruits. Lungs are diminished at the bases Cardiac exam, Rhythm is regular.. No murmurs, rubs or gallops. Abdominal exam reveals normal bowel sounds, soft non tender, no masses Extremity on left is with swelling and deformity Neurologic exam is alert and oriented, no focal loss of strength or sensation Skin is without bruises or rashes Psychologically is without concerns for anxiety or depression Results & Data Results & Data ([facility]) Vital Signs (Past 12 Hours) Vital Signs Temp Pulse Resp BP Pulse Ox 12/12/20 17:33 98.8 F 12/12/20 15:22 99.7 F H 81 16 98/61 L 95 12/12/20 08:53 100.4 F H 12/12/20 07:12 99.9 F H 89 16 118/75 97 PG Care Time/CCT Total # of Minutes Spent Total Time Spent with Patient: Total time spent is greater than 50% in coordination of care (as documented) at patient's floor/unit and/or counseling patient: Coding Level of Care Code 42065 Subseq Hosp Care Lvl 3 Diagnoses Left humeral fracture S42.302A Encounter type: initial encounter Fracture morphology: unspecified fracture morphology Fracture type: closed Humerus Location: shaft Encephalopathy G93.40 History of cranioplasty Z98.890 Subarachnoid bleed I60.9 Recent urinary tract infection Z87.440 Falls W19.XXXA Bladder outlet obstruction N32.0 History of ARDS Z87.09 Status post insertion of percutaneous endoscopic gastrostomy (PEG) tube Z93.1 Epilepsy G40.909 Obesity E66.9 DVT prophylaxis Z29.9 (1) Left humeral fracture Encounter type: initial encounter Fracture morphology: unspecified fracture morphology Fracture type: closed Humerus Location: shaft Qualified Code(s): S42.302A - Unspecified fracture of shaft of humerus, left arm, initial encounter for closed fracture
[2020-12-12] MEDS ORDERED: SODIUM CHLORIDE 0.9% 1000ML 1,000 ML IV SCH (20:15)
--- NOTE | 2020-12-12 20:22 | XRay Report ---
XR chest 1V portable CLINICAL HISTORY: Suspected pneumonia COMPARISON STUDY: 12/10/2020 FINDINGS: The heart remains enlarged. There is aortic tortuosity/ectasia. There is mild elevation of interstitium. Mild pulmonary vascular congestion is suspected although an interstitial infectious/inf lammatory processes could appear similar. Left hemidiaphragm is slightly obscured. This is likely ate lectatic although although again infectious/inflammatory process cannot be excluded. There is minor b lunting of the lateral costophrenic angles. A catheter courses across the chest. This likely represen ts a ventriculoperitoneal shunt[ IMPRESSION: 1. Cardiomegaly and radiographic findings suggestive of mild pulmonary vascular congestion/fluid over load with trace bilateral pleural effusions 2. Left basilar opacities likely atelectatic ACT 112: Negative or not required by law. Electronically signed by: Adam Ortega M.D. 12/12/2020 8:21 PM
[2020-12-12] MEDS: MIRTAZAPINE TAB 15 MG TAB GT SCH (21:52)
[2020-12-12] MEDS: DONEPEZIL HCL 5 MG TAB PO SCH (21:52)
[2020-12-12] MEDS: SENNOSIDES 8.8 MG/5 ML UDC PO SCH (21:53)
[2020-12-13 05:51] LABS: BUN Creatinine Ratio 14.7 (10-20); Calcium 8.4 mg/dl (8.5-10.1); Creatinine Clr Calc Pharmacy 48.2 ml/min; Est GFR (African American) 64.6 ml/min; Est GFR (Non-African American) 55.7 ml/min
[2020-12-13 05:54] LABS: Albumin Globulin Ratio 0.6 (0.9-2); Bilirubin,Total 0.5 mg/dl (0.2-1); Globulin 3.5 gm/dl (2.5-4.0); Total Protein 5.5 gm/dl (6.4-8.2)
[2020-12-13] MEDS: ACETAMINOPHEN 325 MG TAB PEG PRN ×2 (06:02→18:17)
[2020-12-13] MEDS: oxyCODONE HCL IR 5 MG TAB (IMMEDIATE RELEASE) PEG PRN ×2 (06:02→18:17)
[2020-12-13] MEDS: MIDODRINE HCL 10 MG TAB PO SCH ×3 (06:02→18:15)
[2020-12-13 07:44] LABS: Basophils # (auto) 0.02 K/uL (0-0.2); Basophils % (auto) 0.2 %; Eosinophils # (auto) 0.12 K/uL (0-0.5); Eosinophils % (auto) 1.3 %; Hematocrit (blood only) 24.1 % (37-47); Hemoglobin 7.5 g/dL (12.0-16.0); Immature Granulocytes # (auto) 0.03 K/uL (0.00-0.02); Immature Granulocytes % (auto) 0.3 %; Lymphocytes # (auto) 1.28 K/uL (1.2-3.4); Mean Corpuscular Hemoglobin 30.9 pg (25-34); Mean Corpuscular Hgb Conc 31.1 g/dL (32-36); Mean Corpuscular Volume 99.2 fL (80-100); Monocytes # (auto) 0.84 K/uL (0.11-0.59); Monocytes % (auto) 9.2 %; Neutrophils # (auto) 6.83 K/uL (1.4-6.5); Platelet Count 240 K/uL (130-400); RDW Coefficient of Variation 15.3 % (11.5-14.5); Red Blood Count 2.43 M/uL (4.2-5.4); White Blood Count 9.12 K/uL (4.8-10.8)
[2020-12-13 08:05] LABS: Toxic Granulation 1+
[2020-12-13] MEDS ORDERED: SODIUM CHLORIDE 0.9% 250 ML IV PRN ×2 (08:14→08:52)
[2020-12-13] MEDS: levETIRAcetam ORAL SOLN 100MG/ML PEG SCH ×2 (09:16→20:10)
[2020-12-13] MEDS: TAMSULOSIN HCL 0.4 MG CAP PEG SCH ×2 (09:16→20:10)
[2020-12-13] MEDS: FAMOTIDINE 20 MG TAB JT SCH ×2 (09:16→20:10)
--- NOTE | 2020-12-13 17:07 | Hospitalist Progress Note ---
Date of Service December 13, 2020 Assessment & Plan (1) Left humeral fracture: mechanical fall, displaced with large degree of separation, orthopedic surgery is considering surgical repair, given recent subarachnoid bleed and craniotomy will have anesthesia consult to determine if able to perform surgery with limb block as she is only 2 months out from [facility] [place]note 2]. family is still considering if to proceed to surgery requesting transfer to [facility] (2) Encephalopathy: metabolic encephalopathy poa, has ecoli uti, started on ceftriaxone, family corroborates that has had a decline in last few days that likely lead to higher fall risk now has fever despite antibiotics,no infiltrates seen on cxr given worsening swallowing issues (3) History of cranioplasty: 09/20/20 at [facility] (4) Subarachnoid bleed: did have aneurysmal clipping. Ct of head 12/10/20 IMPRESSION: 1. There is no hemorrhage, enhancing mass, or evidence of acute territorial ischemia by CT criteria. 2. Chronic and postoperative changes as above with a ventriculostomy catheter in place. Correlation with the patient's neurological/neurosurgical history be required. (5) Recent urinary tract infection: once again has ecoli in urine likely poa and responsible for metabolic encephalopathy (6) Falls: (7) Bladder outlet obstruction: continues on flomax but with poor output will place guan (8) History of ARDS: (9) Status post insertion of percutaneous endoscopic gastrostomy (PEG) tube: During previous hospitalization; per group home notes, she receives Jevity 1.5 1 can via tube if she eats less than 50% of her meals. -Per our speech therapy will try her on fiber sure source with a goal of 55 an hour at this point time speech therapy cannot clear her swallowing I would recommend a video swallow prior to discharge from facility (10) Epilepsy: after subarachnoid hemorrhage, will continue keppra (11) Obesity: (12) DVT prophylaxis: scd Admission and Anticipated Discharge Date Admission Date: December 10, 2020 Subjective Patient seems to be despondent and withdrawn did not interact well with speech therapy refusing to attempt to swallow. She does not make eye contact with me. The family is requesting transfer to [facility] in [place] due to her increased risk of perioperative issues with her recent subarachnoid hemorrhage and now the need for orthopedic surgical correction. anemia is acute blood loss anemia from fracture did receive 2 units of red blood cells Review of Systems Review of Systems: moderate distress and fatigue no headache, no visual changes swallowing issue is now npo no chest pain, pressure or palpitations no shortness of breath, cough or wheezes no abdominal pain, nausea or vomiting, diarrhea or constipation no dysuria, hematuria or frequency left upper arm pain and swelling no back pain, CVA tenderness or radicular pain no bruising, bleeding or rashes no focal signs of weakness or numbness or altered sensation no complaints of anxiety or depression.. Physical Exam Physical Exam: The patient appeared becoming withdrawn and appearing slightly depressed the difficult and less interaction Vital signs as documented. Head exam is normocephalic atraumatic Neck is without JVD, thyromegaly, or carotid bruits. Lungs are diminished at the bases upper airway breath sounds are heard concern for aspiration Cardiac exam, Rhythm is regular.. No murmurs, rubs or gallops. Abdominal exam reveals normal bowel sounds, soft non tender, no masses Extremity on left is with swelling and deformity Neurologic exam is alert and oriented, no focal loss of strength or sensation Skin is without bruises or rashes Psychologically is without concerns for anxiety or depression Results & Data Results & Data ([facility]) Vital Signs (Past 12 Hours) Vital Signs Temp Pulse Pulse Resp BP BP Pulse Ox 12/13/20 15:58 97.9 F 79 16 124/73 95 12/13/20 14:58 98.4 F 78 16 117/69 94 12/13/20 14:39 99.3 F 80 19 132/81 96 12/13/20 14:28 97.9 F 80 16 125/77 96 12/13/20 14:13 98.2 F 74 14 133/82 97 12/13/20 13:56 97.7 F 77 18 120/70 97 12/13/20 13:38 97.9 F 75 16 126/78 94 12/13/20 12:30 99.1 F 78 19 138/76 96 12/13/20 12:07 99.0 F 73 19 119/75 97 12/13/20 11:30 98.4 F 78 14 115/72 97 12/13/20 11:02 98.8 F 76 19 115/75 97 12/13/20 10:45 98.8 F 79 18 120/70 96 12/13/20 10:35 99.0 F 83 18 126/69 12/13/20 07:24 98.2 F 91 H 19 127/73 90 PG Care Time/CCT Total # of Minutes Spent Total Time Spent with Patient: Total time spent is greater than 50% in coordination of care (as documented) at patient's floor/unit and/or counseling patient: Coding Level of Care Code 29200 Subseq Hosp Care Lvl 2 Diagnoses Left humeral fracture S42.302A Encounter type: initial encounter Fracture morphology: unspecified fracture morphology Fracture type: closed Humerus Location: shaft Encephalopathy G93.40 History of cranioplasty Z98.890 Subarachnoid bleed I60.9 Recent urinary tract infection Z87.440 Falls W19.XXXA Bladder outlet obstruction N32.0 History of ARDS Z87.09 Status post insertion of percutaneous endoscopic gastrostomy (PEG) tube Z93.1 Epilepsy G40.909 Obesity E66.9 DVT prophylaxis Z29.9 (1) Left humeral fracture Encounter type: initial encounter Fracture morphology: unspecified fracture morphology Fracture type: closed Humerus Location: shaft Qualified Code(s): S42.302A - Unspecified fracture of shaft of humerus, left arm, initial encounter for closed fracture
--- NOTE | 2020-12-13 17:23 | Orthopedic Progress Note ---
Date of Service December 13, 2020 Assessment & Plan (1) Left humeral fracture: A new well padded and molded coaptation splint was applied today. Planned surgery was cancelled for today. Will obtain updated x-rays after splint placement. If patient is to move forward with surgical intervention, this will need to be done at a tertiary care facility. Patient's daughter has been notified and is in agreement with transfer. Will discuss with medicine service. Admission and Anticipated Discharge Date Admission Date: December 10, 2020 Subjective Patient seen and evaluated with Dr. Sánchez this afternoon. Hx limited due to encephalopathic state. Does not respond to questions. Patient's planned surgery for today was cancelled as patient deemed to high risk for surgery at this facility. Review of Systems Review of Systems: Unobtainable due to cognitive status Physical Exam Physical Exam: Left arm posterior splint was removed. Patient with mild discomfort during procedure. She has some active flexion of her fingers and minimal movement of her thumb. Does not appear to have active extension of wrist, possible radial nerve palsy. N/V status distally intact, distal pulses palpable. A new well padded and molded coaptation splint was applied, sling reapplied. Constitutional: well developed and well nourished; no acute distress Results & Data ([facility]) Vital Signs (Past 12 Hours) Vital Signs Temp Pulse Pulse Resp BP BP Pulse Ox 12/13/20 17:07 36.8 C 79 16 124/73 96 12/13/20 15:58 36.6 C 79 16 124/73 95 12/13/20 14:58 36.9 C 78 16 117/69 94 12/13/20 14:39 37.4 C 80 19 132/81 96 12/13/20 14:28 36.6 C 80 16 125/77 96 12/13/20 14:13 36.8 C 74 14 133/82 97 12/13/20 13:56 36.5 C 77 18 120/70 97 12/13/20 13:38 36.6 C 75 16 126/78 94 12/13/20 12:30 37.3 C 78 19 138/76 96 12/13/20 12:07 37.2 C 73 19 119/75 97 12/13/20 11:30 36.9 C 78 14 115/72 97 12/13/20 11:02 37.1 C 76 19 115/75 97 12/13/20 10:45 37.1 C 79 18 120/70 96 12/13/20 10:35 37.2 C 83 18 126/69 12/13/20 07:24 36.8 C 91 H 19 127/73 90 (1) Left humeral fracture Encounter type: initial encounter Fracture morphology: unspecified fracture morphology Fracture type: closed Humerus Location: shaft Qualified Code(s): S42.302A - Unspecified fracture of shaft of humerus, left arm, initial encounter for closed fracture
[2020-12-13] MEDS: cefTRIAXone SODIUM 2,000 MG in DEXTROSE 5% 50 ML IV SCH (17:28)
[2020-12-13] MEDS ORDERED: FIBERSOURCE HN 1.2 CAL 1000 ML BAG GT SCH (17:45)
[2020-12-13] MEDS: SENNOSIDES 8.8 MG/5 ML UDC PO SCH (20:10)
[2020-12-13] MEDS: MIRTAZAPINE TAB 15 MG TAB GT SCH (20:10)
[2020-12-13] MEDS: DONEPEZIL HCL 5 MG TAB PO SCH (20:10)
--- NOTE | 2020-12-13 21:10 | XRay Report ---
LEFT HUMERUS 2 VIEWS CLINICAL HISTORY: Follow-up humeral fracture. FINDINGS: AP and lateral views of the left humerus are compared to study dated 12/10/2020. The skeleta l structures are osteopenic. Again seen is a displaced and angulated spiral fracture through the prox imal to mid shaft of the left humerus. The distal fragment is displaced dorsally by approximately 5 c m, and there is at least 2 cm of overriding of the fragments. Overlying soft tissue edema is noted. T he left shoulder and elbow joints are grossly maintained. There is overlying bandaging material. Pos toperative change is partially visualized in the distal radius. IMPRESSION: A displaced and overriding spiral fracture of the left humerus is similar to the examination. Electronically signed by: Kilo Cotter M.D. 12/13/2020 9:08 PM
[2020-12-14] MEDS: MIDODRINE HCL 10 MG TAB PO SCH ×2 (06:15→12:11)
[2020-12-14] MEDS: FAMOTIDINE 20 MG TAB JT SCH (08:43)
[2020-12-14] MEDS: TAMSULOSIN HCL 0.4 MG CAP PEG SCH (08:44)
[2020-12-14] MEDS: levETIRAcetam ORAL SOLN 100MG/ML PEG SCH (08:46)
[2020-12-14 09:30] LABS: Hemoglobin 9.9 g/dL (12.0-16.0); Mean Corpuscular Hemoglobin 31.3 pg (25-34); Mean Corpuscular Volume 94.9 fL (80-100); Mean Platelet Volume 10.5 fL (7.4-10.4); Platelet Count 270 K/uL (130-400); RDW Coefficient of Variation 15.3 % (11.5-14.5); RDW Standard Deviation 53.4 fL (36.4-46.3); Red Blood Count 3.16 M/uL (4.2-5.4); White Blood Count 8.54 K/uL (4.8-10.8)
[2020-12-14 10:06] LABS: BUN Creatinine Ratio 14.5 (10-20); Calcium 8.9 mg/dl (8.5-10.1); Creatinine Clr Calc Pharmacy 54.2 ml/min; Est GFR (African American) 74.5 ml/min; Est GFR (Non-African American) 64.3 ml/min; Potassium 3.8 mmol/L (3.5-5.1)
--- NOTE | 2020-12-14 19:08 | Discharge Summary ---
Date of Service December 14, 2020 Admission HPI Per Admitting Provider Ms. 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 She presented from [facility] rehab following 4 falls over the last 24 hours (per ER note). XR of left humerus did show a displaced, angulated and overriding spiral fracture through the proximal to mid shaft of the left humerus. The patient initially presented to an outside facility on 09/15 with H/A, N/V and altered mental status. Imaging confirmed diagnosis of a subarachnoid hemorrhage; she was transferred to [facility] and underwent cranioplasty on 09/20/20, aneurysm clip and shunt placement. Developed respiratory failure, required trach placement along with PEG tube placement. Diagnosed with sepsis, bacteremia (treated with IV abx) related to midline placement. Tracheostomy has since been removed but does have PEG tube (receiving 1 can of Jevity if she eats <50% of her meals). She is requiring a pureed diet as well. She was discharged to [facility] on 11/30/20. Her daughter was present at bedside; reports that the patient was very healthy, was able to participate in activities with her family and lived alone prior to event in September/2020. She was improving, somewhat verbal following discharge to [facility]; her mental status significantly declined over the last 48-72 hours, leading to her family being notified of the change. Principal Diagnosis Displaced left humeral midshaft fracture Recent neurosurgical intervention making anesthesia high risk Transfer to [facility] for anesthesia expertise E. coli UTI present on admission Discharge Exam The patient appeared chronically ill and debilitated Vital signs as documented. Lungs are clear to auscultation and appear unlabored Cardiac exam, Rhythm is regular.. No murmurs, rubs or gallops. Abdominal exam reveals normal bowel sounds, soft non tender, no masses Left upper extremity is swollen sling is in place tender to movement Neurologic exam is interactive but with dysarthric Discharge Data Allergies Allergy/AdvReac Type Severity Reaction Status Date / Time No Known Allergies Allergy Unverified 12/10/20 13:08 Consultations 12/10/20 13:16 Consult Orthopedic Surgery Routine 12/10/20 14:02 ED Decision to Admit Stat 12/12/20 10:25 Consult Anesthesiology Routine 12/14/20 12:01 Burn CD for patient Routine Procedures Performed Operation Date: 12/13/20 14:25 <No data on this case meets the specified criteria> Ordered Studies 12/10/20 16:06 CT head/brain wo/w con Routine Hospital Course (1) Left humeral fracture: mechanical fall, displaced with large degree of separation, orthopedic surgery is considering surgical repair, given recent subarachnoid bleed and craniotomy will have anesthesia consult to determine if able to perform surgery with limb block as she is only 2 months out from [facility]. family is still considering if to proceed to surgery requesting transfer to [facility], accepted by hospitalist Dr Larson (2) Encephalopathy: metabolic encephalopathy poa, has ecoli uti, started on ceftriaxone, family corroborates that has had a decline in last few days that likely lead to higher fall risk now has fever despite antibiotics,no infiltrates seen on cxr given worsening swallowing issues (3) History of cranioplasty: 09/20/20 at [facility] in [place] (4) Subarachnoid bleed: did have aneurysmal clipping. Ct of head 12/10/20 IMPRESSION: 1. There is no hemorrhage, enhancing mass, or evidence of acute territorial ischemia by CT criteria. 2. Chronic and postoperative changes as above with a ventriculostomy catheter in place. Correlation with the patient's neurological/neurosurgical history be required. (5) Recent urinary tract infection: once again has ecoli in urine likely poa and responsible for metabolic encephalopathy, treated with ceftriaxone (6) Falls: (7) Bladder outlet obstruction: continues on flomax but with poor output, guan in place (8) History of ARDS: (9) Status post insertion of percutaneous endoscopic gastrostomy (PEG) tube: During previous hospitalization; per penitentiary notes, she receives Jevity 1.5 1 can via tube if she eats less than 50% of her meals. -Per our speech therapy will try her on fiber sure source with a goal of 55 an hour at this point time speech therapy cannot clear her swallowing I would recommend a video swallow prior to discharge from facility (10) Epilepsy: after subarachnoid hemorrhage, will continue jeremiah (11) Obesity: Total Time Total Time Spent Total Time Spent (In Minutes): It required greater than 30 minutes to prepare this patient for discharge Discharge Plan Discharge Items Patient Disposition: Transfer Acute Care Hospital Reason For Visit: LEFT HUMERAL FRACTURE Discharge Diagnosis: left humeral fracture recent neurosurgery metabolic encephalopathy poa uti poa Activity: Per Instructions section Activity Comment: per PT/OT Non-emergency contact: Primary Care Provider and Surgeon Call non-emergency contact if: your pain is not controlled and you have a fever Follow-up/Referrals: Kate Tapia [Primary Care Provider] - Diet: Other - See Diet Comment Diet Comment: Pt was having jevity 1.5 augmenting oral intake, now on 55ml/hr cont feeds Addtl Attending Provider Instructions: prior to admission pt had decline at [facility] for 4 days culminating in falls out of bed with resultant humeral fracture. Prior to that was eating some po and if poor meal was getting some Jevity via peg family was counceled and still want aggressive treatment as prior to september pt was independent Pt found to have ecoli uti poa starting on Rocephin 12/11/20 Pending Studies at Discharge: No Stand-Alone Forms: My [facility] Skilled Items Patient informed of condition?: Yes DNR: No Discharge Level of Care: Other Communicable Disease: No Discharge Prognosis: Stable Lines: Peripheral IV Urinary Catheter: Yes Medications and DC Order Prescriptions: New Fibersource HN 0.05 gram- 1.2 kcal/mL Liquid 1,000 ml G-tube UD Qty: 100 RF: 0 ceftriaxone 2 gram recon soln 1 g IV DAILY Qty: 4 RF: 0 Continued amantadine HCl 50 mg/5 mL Solution 50 mg PO BID RF: 0 sennosides [senna] 8.6 mg Tablet 8.6 mg PO HS RF: 0 acetaminophen [Tylenol] 325 mg Tablet 325 mg PO Q4H PRN (Reason: mild to severe pain) RF: 0 ipratropium-albuterol 0.5 mg-3 mg(2.5 mg base)/3 mL Solution For Nebulization 3 ml INHALATION Q6H PRN (Reason: Shortness Of Breath) RF: 0 donepezil 5 mg Tablet 5 mg PO HS RF: 0 midodrine 5 mg Tablet 10 mg PO TID RF: 0 melatonin 3 mg Tablet 3 mg PO HS PRN (Reason: Sleep) RF: 0 famotidine 20 mg Tablet 20 mg PO BID RF: 0 tamsulosin [Flomax] 0.4 mg Capsule 0.4 mg PO BID RF: 0 levetiracetam [Keppra] 100 mg/mL Solution 1,500 mg PO Q12H RF: 0 mirtazapine 7.5 mg Tablet 7.5 mg PO HS RF: 0 Jevity 1.5 Tu 0.06 gram-1.5 kcal/mL Liquid See Rx Instructions .ROUTE .COMPLEX RF: 0 Discontinued bethanechol chloride 10 mg Tablet 10 mg PO TID RF: 0 Discharge Orders: Discharge Order (Routine); Ordered 12/14/20 Ordered By: Paulo Graff Admission Data Admit Date/Time: 12/10/20 13:12 Attending Provider: Paulo Graff Admit Provider: Paulo Graff Primary Care Provider: Kate Tapia Other Providers: To Kerr ; Paulo Graff ; Bill Kee Other Interventions: Discharge Summary Assessment (RN) Last Done: 12/14/20 14:37 Coding Level of Care Code D/C Day Management >30 mins Diagnoses Left humeral fracture S42.302A Encounter type: initial encounter Fracture morphology: unspecified fracture morphology Fracture type: closed Humerus Location: shaft Encephalopathy G93.40 History of cranioplasty Z98.890 Subarachnoid bleed I60.9 Recent urinary tract infection Z87.440 Falls W19.XXXA Bladder outlet obstruction N32.0 History of ARDS Z87.09 Status post insertion of percutaneous endoscopic gastrostomy (PEG) tube Z93.1 Epilepsy G40.909 Obesity E66.9
== END 2020-12-14 15:10 | disposition short-term general hospital (02) | DRG 562 ==
LOC: ED 11:39 → 3E 13:12